=== PATIENT | female | born 1960 ===

== ENCOUNTER → 2022-09-18 10:12 | Outpatient (POV) | payer MEDICAID, SELFPAY ==
[2022-09-18 10:50] VITALS: BP 142/71; PULSE 89; RESP 20; O2SAT 95; BMI 39.7
--- NOTE | 2022-09-18 12:42 | EXP.PAIN.OV ---
HPI Data of Consult Patient: new to practice Consult date: 09/18/22 Requesting Physician: FRANKIE Coates Consult Narrative History of present illness: Ms. Alejandre is a 62 year old female who presents today as a new patient. Patient is referred by Dr. Garcia. Thank you for the referral. Patient presents today with complaints of right shoulder pain and chronic low back pain. She is more worried about her right shoulder pain. She states that this started about 6 weeks ago while she was lifting something. Denies any falls or traumas. She is also a non-compliant diabetic so she states that she cannot get any steroid injections. Currently being followed by PCP for her sugar. She is doing PT right now that is helping some of her pain. In regards to her back, she states that she's had this for years. Radiates to BLE at times. No precipitating factors. She was seeing a pain clinic in [place], [place] who was prescribing her Simpson 7.5mg TID. She recently moved to [place]. She was actually referred to Dr. García who also offered injections but not oral medications. Rates her pain as 8/10. CC: FRANKIE Coates [facility] Disclaimer: The information contained in this section may have been updated after the patient was seen, as this information can be updated by other users. Medical History (Updated 09/18/22 @ 12:53 by FRANKIE Coates) Chronic pain Diabetes GERD (gastroesophageal reflux disease) HLD (hyperlipidemia) HTN (hypertension) Social History (Updated 09/18/22 @ 10:54 by Grisel Escalante RN) Smoking Status: Former smoker alcohol intake: never current occupational status: disabled Travel in the last 8 weeks: None Review of Systems Review of Systems Review of systems (narrative): Review of Systems: General: No recent weight changes, no fever, no sleep disturbances Respiratory: No cough, no shortness of air, no recurring pulmonary infections Cardiovascular/peripheral vascular: No chest pain, no palpitations, no edema, no shortness of breath Gastrointestinal: No new onset incontinence, normal bowel movements reported Genitourinary: No new onset incontinence Musculoskeletal: Low back pain, right shoulder pain Psychiatric: [Normal mood/affect] Neurological: [Denies weakness in extremities], [denies balance issues] Meds Home Medications and Allergies Home Medications Medication Instructions Recorded Confirmed Type albuterol sulfate 90 mcg/actuation 1 puff inhalation NEEDED PRN 09/18/22 09/18/22 History aerosol inhaler (Ventolin HFA) BREATHING atorvastatin 80 mg tablet 80 mg PO DAILY Cholesterol 09/18/22 09/18/22 History cetirizine 10 mg tablet 10 mg PO DAILY ALLERGIES 09/18/22 09/18/22 History empagliflozin 25 mg tablet 25 mg PO DAILY Diabetes 09/18/22 09/18/22 History (Jardiance) esomeprazole magnesium 20 mg 20 mg PO DAILY SUPPLIMENT 09/18/22 09/18/22 History capsule,delayed release fluticasone propionate 50 1 spray intranasal NEEDED PRN 09/18/22 09/18/22 History mcg/actuation nasal BREATHING spray,suspension insulin glargine 100 unit/mL (3 30 unit SQ DAILY Diabetes 09/18/22 09/18/22 History mL) subcutaneous pen (Basaglar KwikPen U-100 Insulin) lisinopril 20 mg tablet 20 mg PO DAILY BLOOD PRESSURE 09/18/22 09/18/22 History meloxicam 7.5 mg tablet 7.5 mg PO DAILY Pain 09/18/22 09/18/22 History metformin 1,000 mg tablet 1,000 mg PO BID Diabetes 09/18/22 09/18/22 History pantoprazole 40 mg tablet,delayed 40 mg PO DAILY STOMACH 09/18/22 09/18/22 History release pen needle, diabetic 31 gauge x 09/18/22 09/18/22 History 3/16 (BD Ultra-Fine Mini Pen Needle) New Prescriptions to Start Prescriptions: Objective Vital signs: Pulse Resp BP Pulse Ox 89 20 142/71 H 95 09/18/22 10:50 09/18/22 10:50 09/18/22 10:50 09/18/22 10:50 Narrative: Physical Exam: General: Alert and oriented x3, no acute distress, pleasant and cooperative Lungs: Respirations even
== END ==
PROVIDERS: Visit Provider Student in an Organized Health Care Education/Training Program
DX: M54.9 Dorsalgia, unspecified (principal); M25.511 Pain in right shoulder; G89.29 Other chronic pain
CPT/HCPCS: 99202; G0463